=== PATIENT | male | born 1990 | race Caucasian/White ===

== ENCOUNTER 2016-08-22 21:19 | Emergency (ER) | payer MEDICAID, OTHER ==
[~2016-08-22] VITALS: Ht 172.7 cm; Wt 74.0 kg
[2016-08-22 21:35] VITALS: Ht 172.7 cm; Wt 74.0 kg
[2016-08-22] MEDS ORDERED: IBUP-1542 PO (21:43)
[2016-08-22] MEDS ORDERED: AZIT250T94 PO (21:43)
[2016-08-22] MEDS ORDERED: CETI10CA PO (21:43)
[2016-08-22] MEDS ORDERED: GUAI120S26 PO (21:43)
--- NOTE | 2016-08-22 21:47 | ERD ---
ER Documentation Chief Complaint Date/Time DATE: 08/22/16 TIME: 21:45 Chief Complaint fever x 9 days with cough HPI 26-year-old male presents here in emergency department for complaints of cough with greenish phlegm, fever on-and-off, wheezing episodes for the last 9 days. Patient has history of asthma. Patient does not have any wheezing at this time. Patient denies any shortness breath. Patient denies any chest or palpitations. Patient denies any dizziness. Patient denies any sore throat or ear pain. Patient denies any sick contacts. ROS All systems reviewed and are negative except as per history of present illness. Medications Home Meds Active Scripts Ibuprofen* (Motrin*) 600 Mg Tab, 600 MG PO Q6H Y for PAIN AND OR ELEVATED TEMP, #30 TAB Prov:SKYLER MCCALL NP 08/22/16 Cetirizine Hcl* (Zyrtec*) 10 Mg Capsule, 10 MG PO DAILY, #30 TAB.CHEW Prov:SKYLER MCCALL NP 08/22/16 Cwigytmeqnk-A-Xgexpijywj Hb* (Guaifenesin* DM Syrup) 120 Ml Syrup, 10 ML PO Q4H Y for COUGH, #120 ML Prov:SKYLER MCCALL NP 08/22/16 Azithromycin* (Zithromax*) 250 Mg Tablet, 250 MG PO .ZPACK DIRECTED, #6 TAB TAKE 500 MG (2 TABS) THE FIRST DAY THEN 250 MG (1 TAB) DAYS 2-5 Prov:SKYLER MCCALL NP 08/22/16 Allergies Allergies: Coded Allergies: No Known Allergy (Unverified , 02/12/14) PMhx/Soc Medical and Surgical Hx: pt denies Medical Hx, pt denies Surgical Hx FmHx Family History: No coronary disease, No diabetes, No other Physical Exam Vitals Vital Signs Date Time Temp Pulse Resp B/P Pulse Ox O2 Delivery O2 Flow Rate FiO2 08/22/16 21:35 99.9 98 18 127/69 97 Physical Exam GENERAL: The patient is well developed and appropriate for usual state of health, in no apparent distress. HEENT: Atraumatic. Ears: Normal tympanic membrane, no erythema or bulging. No ear canal swelling. No ear discharge. Erythematous nasal turbinates with clear nasal discharge.. Throat: oropharynx erythematous with postnasal drip. No tonsillar swelling or tonsillar exudates. No lymphadenopathy. CHEST: Clear to auscultation bilaterally. There are no rales, wheezes or rhonchi. HEART: Regular rate and rhythm. No murmurs, clicks, rubs or gallops. No S3 or S4. ABDOMEN: Soft, nontender and nondistended. Good bowel sounds. No rebound or guarding. No gross peritonitis. No gross organomegaly or masses. No Galvez sign or McBurney point tenderness. BACK: No midline or flank tenderness. EXTREMITIES: Equal pulses bilaterally. There is no peripheral clubbing, cyanosis or edema. No focal swelling or erythema. Full range of motion. Grossly neurovascularly intact. NEURO: Alert and oriented. Cranial nerves 2-12 intact. Motor strength in all 4 extremities with 5/5 strength. Sensation grossly intact. Normal speech and gait. SKIN: There is no apparent rash or petechia. The skin is warm and dry. HEMATOLOGIC AND LYMPHATIC: There is no evidence of excessive bruising or lymphedema. No gross cervical, axillary, or inguinal lymphadenopathy. Procedures/MDM Medical Decision Making: Patient symptoms are most likely consistent with acute bronchitis, most likely atypical infection, which treat patient with antibiotics, especially patient is asthmatic high risk. There is low suspicion for Pneumonia at this time since patients lungs sounds are clear, patient O2 saturation is normal and patient doesnt show any respiratory distress. Radiology exam is not indicated at this time. There is low suspicion for other cardiopulmonary emergencies at this time such as CHF, Pulmonary Embolism, Pneumothorax, or any other cardiopulmonary emergencies at this time. There is low suspicion for sepsis. Patient appears well and is hemodynamically stable. Fever is controlled with medicines. Disposition: Home. Condition: Stable Prescriptions: Azithromycin, guaifenesin DM, Zyrtec, ibuprofen, continue albuterol Instructions: Patient is advised to take medications as prescribed. Patient is advised to rest. Patient advised to increase fluid intake, do humidifier at home and if possible, do salt water gargles. Patient is advised that if symptoms are worse, shortness of breath, uncontrolled fever, stridor, vomiting, worst signs and symptoms to return to emergency department immediately. Otherwise, patient is advised to follow up with primary doctor in 5-7 days. Departure Diagnosis: Primary Impression: Acute bronchitis Bronchitis organism: unspecified organism Qualified Code: J20.9 - Acute bronchitis, unspecified organism Condition: Stable Patient Instructions: Bronchitis, Antiobiotic Treatment (Adult) SKYLER MCCALL NP Aug 22, 2016 21:47
== END 2016-08-22 21:44 | disposition home or self-care (01) ==
LOC: FTE 21:19 → E/R 21:44
DX: J20.9 Acute bronchitis, unspecified (principal)
CPT/HCPCS: 99283